=== PATIENT | male | born 1955 | race Two or more races ===

== ENCOUNTER 2017-11-10 16:43 | Emergency (ER) | payer BC ==
[~2017-11-10] VITALS: Ht 167.6 cm; Wt 55.3 kg
[2017-11-10 18:22] VITALS: Ht 167.6 cm; Wt 55.3 kg
[2017-11-10 19:26] LABS: CALCIUM 7.9 mg/dL (8.5-10.1); CARBON DIOXIDE 27.9 mmol/L (21-32); CHLORIDE SERUM 108 mmol/L (98-107); CREATININE SERUM 0.6 mg/dL (0.7-1.3); GFR1 > 60 mL/min; GLUCOSE SERUM 101 mg/dL (74-106); POTASSIUM SERUM 3.3 mmol/L (3.5-5.1); SODIUM SERUM 140 mmol/L (136-145)
[2017-11-10 19:33] LABS: ALKALINE PHOSPHATASE 383 U/L (46-116); ALT/SGPT 61 U/L (16-63); AST/SGOT 70 U/L (15-37); BILIRUBIN TOTAL 0.6 mg/dL (0.20-1.00)
[2017-11-10 19:37] LABS: BASOPHIL % 0.3 % (0-2); PLATELET COUNT 155 x10^3mcL (130-400)
[2017-11-10 19:39] LABS: RED CELL DISTRIBUTION WIDTH 16.1 % (11.5-14.5)
[2017-11-10 19:40] LABS: TOTAL PROTEIN, SERUM 5.9 g/dL (6.4-8.2)
[2017-11-10 19:41] LABS: ALBUMIN 2.2 g/dL (3.4-5.0)
[2017-11-10 23:34] VITALS: BP 129/75
== END 2017-11-10 23:34 | disposition short-term general hospital (02) ==
LOC: ED 16:43 → RD 16:43 → ED 16:43 → EDSTATUS 17:48 → ED 23:34
PROVIDERS: Emergency Medicine
DX: I82.C11 Acute embolism and thrombosis of right internal jugular vein (principal); Z88.6 Allergy status to analgesic agent
CPT/HCPCS: J1644